=== PATIENT | male | born 1980 | race Caucasian/White ===

== ENCOUNTER 2019-09-08 01:35 | Emergency (ER) | payer MEDICAID ==
[~2019-09-08] VITALS: Ht 180.3 cm; Wt 52.2 kg
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
--- NOTE | 2019-09-08 01:43 | NUR ---
[employer] AT BEDSIDE TALKING TO PT.
--- NOTE | 2019-09-08 02:07 | NUR ---
BROUGHT BY RADIOLOGY TO CT
[2019-09-08] MEDS ORDERED: KETOROLAC TROMETHAMINE INJ 30 MG/ML VIAL ONE (05:23)
[2019-09-08] MEDS ORDERED: KETOROLAC TROMETHAMINE INJ 60 MG/2 ML VIAL IM ONE (05:30)
[2019-09-08 05:39] VITALS: BP 127/73
--- NOTE | 2019-09-08 05:39 | NUR ---
Patient discharged to home in stable condition. Written and verbal after care instructions given. Patient verbalizes understanding of instruction and RX.
== END 2019-09-08 05:40 | disposition home or self-care (01) ==
LOC: ER 01:37
DX: S02.632A Fracture of coronoid process of left mandible, initial encounter for closed fracture (principal); S02.631A Fracture of coronoid process of right mandible, initial encounter for closed fracture; Y08.89XA Assault by other specified means, initial encounter; Y93.89 Activity, other specified; Y92.89 Other specified places as the place of occurrence of the external cause; Y99.8 Other external cause status
CPT/HCPCS: 70450; 70486; 96372; 99285; J1885; J7040